=== PATIENT | male | born 1940 | race Caucasian/White ===

== ENCOUNTER → 2018-04-12 | Outpatient (CLI) | payer MEDICARE, OTHER ==
[2018-04-12 09:51] LABS: HEMATOCRIT 40.8 % (42.0-52.0); HEMOGLOBIN 15.5 g/dL (13.5-18.0)
== END ==
LOC: LAB 09:31
PROVIDERS: Emergency Medicine
DX: E66.3 Overweight (principal); E29.1 Testicular hypofunction

== ENCOUNTER 2019-04-13 15:00 | Outpatient (RCR) | payer MEDICARE, OTHER | END 2019-06-07 | disposition home or self-care (01) | LOC: CARDREHAB | DX: Z48.812 Encounter for surgical aftercare following surgery on the circulatory system (principal); Z95.5 Presence of coronary angioplasty implant and graft ==